=== PATIENT | female | born 1960 | race Caucasian/White ===

== ENCOUNTER 2016-12-14 19:22 | Emergency (ER) | payer OTHER ==
[~2016-12-14] VITALS: Ht 170.2 cm; Wt 62.7 kg
[~2016-12-14 19:22] MED LIST: ACET-1256 PO; ADENOSINE IV SOLN 3 MG/ML 2 ML VIAL IV STA; ADENOSINE IV SOLN 3 MG/ML 2 ML VIAL ONE; AMIT10TA6 PO; CALC-20 PO; LORA-741 PO; METO25TA56 PO; PROM25TA16 PO; TRAM-10 PO; VALA1TAB PO
[2016-12-14 19:35] VITALS: TEMP 36.8; O2SAT 95; Ht 170.2 cm; Wt 62.7 kg
[2016-12-14 19:40] LABS: BASO % 0.5 %; BASO ABS # 0.03 K/uL (0-0.2); COMPLETE YES; EOS % 3.6 %; HEMATOCRIT 38.6 % (37-47); IG% 0.3 %; LYMPH % 40.7 %; LYMPH ABS # 2.46 K/uL (1.2-3.4); MEAN CELL VOLUME 91.5 fL (80-100); MEAN CORPUSCULAR HEMOGLOBIN 29.1 pg (25-34); MEAN CORPUSCULAR HGB CONC 31.9 g/dl (32-36); MEAN PLATELET VOLUME 9.3 fL (7.4-10.4); MONO % 6.5 %; NEUT % 48.4 %; PLATELET COUNT 202 K/uL (130-400); RED BLOOD COUNT 4.22 M/uL (4.2-5.4); WHITE BLOOD COUNT 6.04 K/uL (4.8-10.8)
--- NOTE | 2016-12-14 19:42 | DIAGNOSTIC IMAGING REPORT ---
CHEST ONE VIEW PORTABLE CLINICAL HISTORY: SVT cardiac arrhythmia COMPARISON STUDY: 09/06/2013 FINDINGS: The bones soft tissues and hemidiaphragms are normal. The cardiomediastinal silhouette is normal. The lungs are clear. The pulmonary vasculature is normal. IMPRESSION: Negative chest. The above report was generated using voice recognition software. It may contain grammatical, syntax or spelling errors. Electronically signed by: Alonzo Milner M.D. 12/14/2016 7:41 PM Dictated Date/Time: 12/14/2016 7:40 PM
[2016-12-14 19:59] LABS: ALT/SGPT 22 U/L (12-78); AST/SGOT 17 U/L (15-37); BLOOD UREA NITROGEN 12 mg/dl (7-18); BUN/CREATININE RATIO 12.1 (10-20); CALCIUM 8.5 mg/dl (8.5-10.1); CARBON DIOXIDE 25 mmol/L (21-32); CHLORIDE 107 mmol/L (98-107); CREATININE 0.95 mg/dl (0.60-1.20); GLUCOSE 108 mg/dl (70-99); MAGNESIUM 2.3 mg/dl (1.8-2.4); POTASSIUM 3.4 mmol/L (3.5-5.1); SODIUM 141 mmol/L (136-145)
[2016-12-14] MEDS ORDERED: POTASSIUM CHLORIDE 10 MEQ TABCR PO STA (20:06)
[2016-12-14 20:10] LABS: ALKALINE PHOSPHATASE 69 U/L (45-117)
--- NOTE | 2016-12-14 20:14 | EMERGENCY ROOM VISIT NOTE ---
History Report prepared by Geovanni: Deb Snider Under the Supervision of: Dr. Lakisha Painter M.D. First contact with patient: 19:20 Stated Complaint: TACHYCARDIA History of Present Illness The patient is a 56 year old female who presents to the Emergency Room by EMS with complaints of an episode of tachycardia just prior to arrival. The patient states that she felt light headed and near syncope when the episode began. She is asymptomatic upon arrival. The patient states that she had an episode like previously two years ago when she was tx in the ED for SVT. She denies smoking. Pt has a history of IBS. Source of History: patient Onset: Just prior to arrival Quality: other (tachycardia) Timing: other (episode) Note: Pt states she felt light headed and near syncope. Review of Systems See HPI for pertinent positives & negatives. A total of 10 systems reviewed and were otherwise negative. Past Medical & Surgical Medical Problems: (1) Depression Surgical Problems: (1) History of dilation and curettage (2) History of tonsillectomy Family History No pertinent family history stated. Social History Smoking Status: Never Smoker Marital Status: Housing Status: lives with family Current/Historical Medications Scheduled Amitriptyline Hcl (Elavil), 20 MG PO DAILY Calcium Carbonate-Vitamin D (Calcium 600 + D), 1 TAB PO DAILY Metoprolol Tartrate (Lopressor) (Lopressor), 12.5 MG PO BID Valacyclovir Hcl (Valtrex), 1 TAB PO DAILY Scheduled PRN Acetaminophen (Tylenol), 500 MG PO Q4 PRN for Pain Lorazepam (Ativan), 0.5 MG PO TID PRN for NERVOUSNESS Tramadol (Ultram), 50 MG PO Q4H PRN for Pain Allergies Coded Allergies: Aspirin (Verified Allergy, Intermediate, HIVES, 12/14/16) Chocolate (Verified Allergy, Intermediate, HIVES, 12/14/16) Ibuprofen (Verified Allergy, Intermediate, HIVES, 12/14/16) [place] (Verified Allergy, Intermediate, HIVES, 12/14/16) Physical Exam Vital Signs Date Time Temp Pulse Resp B/P (MAP) Pulse Ox O2 Delivery O2 Flow Rate FiO2 12/14/16 23:25 76 16 106/72 98 12/14/16 22:32 96 12/14/16 21:23 93 18 114/72 99 Room Air 12/14/16 19:43 98 16 108/69 97 Room Air 12/14/16 19:35 36.8 206 18 106/65 94 Room Air 12/14/16 19:35 94 Room Air 12/14/16 19:35 95 Room Air 12/14/16 19:30 116 12/14/16 19:28 205 Physical Exam Vital signs reviewed. General: Well-appearing female, in no significant distress. HEENT: No scleral icterus, PERRLA, neck supple. Atraumatic. Cardiovascular: Tachycardic and regular, no extra sounds. Pulmonary: Clear to auscultation bilaterally, normal work of breathing. Abdomen: Soft, nontender, nondistended, positive bowel sounds. Musculoskeletal: Atraumatic, no peripheral edema. Neurologic: Patient awake alert and oriented x 3, full strength in all 4 extremities. Cranial nerves 2 through 12 grossly intact. Skin: Warm, dry, no rash Medical Decision & Procedures ER Provider Diagnostic Interpretation: CHEST ONE VIEW PORTABLE FINDINGS: The bones soft tissues and hemidiaphragms are normal. The cardiomediastinal silhouette is normal. The lungs are clear. The pulmonary vasculature is normal. IMPRESSION: Negative chest. The above report was generated using voice recognition software. It may contain grammatical, syntax or spelling errors. Electronically signed by: Alonzo Milner M.D. Laboratory Results 12/14/16 19:05 Red Blood Count 4.22, Mean Corpuscular Volume 91.5, Mean Corpuscular Hemoglobin 29.1, Mean Corpuscular Hemoglobin Concent 31.9, Mean Platelet Volume 9.3, Neutrophils (%) (Auto) 48.4, Lymphocytes (%) (Auto) 40.7, Monocytes (%) (Auto) 6.5, Eosinophils (%) (Auto) 3.6, Basophils (%) (Auto) 0.5, Neutrophils # (Auto) 2.92, Lymphocytes # (Auto) 2.46, Monocytes # (Auto) 0.39, Eosinophils # (Auto) 0.22, Basophils # (Auto) 0.03 12/14/16 19:05 Test 12/14/16 19:05 12/14/16 19:42 12/14/16 20:15 White Blood Count 6.04 K/uL (4.8-10.8) Red Blood Count 4.22 M/uL (4.2-5.4) Hemoglobin 12.3 g/dL (12.0-16.0) Hematocrit 38.6 % (37-47) Mean Corpuscular Volume 91.5 fL (80-100) Mean Corpuscular Hemoglobin 29.1 pg (25-34) Mean Corpuscular Hemoglobin Concent 31.9 g/dl (32-36) Platelet Count 202 K/uL (130-400) Mean Platelet Volume 9.3 fL (7.4-10.4) Neutrophils (%) (Auto) 48.4 % Lymphocytes (%) (Auto) 40.7 % Monocytes (%) (Auto) 6.5 % Eosinophils (%) (Auto) 3.6 % Basophils (%) (Auto) 0.5 % Neutrophils # (Auto) 2.92 K/uL (1.4-6.5) Lymphocytes # (Auto) 2.46 K/uL (1.2-3.4) Monocytes # (Auto) 0.39 K/uL (0.11-0.59) Eosinophils # (Auto) 0.22 K/uL (0-0.5) Basophils # (Auto) 0.03 K/uL (0-0.2) RDW Standard Deviation 43.4 fL (36.4-46.3) RDW Coefficient of Variation 13.0 % (11.5-14.5) Immature Granulocyte % (Auto) 0.3 % Immature Granulocyte # (Auto) 0.02 K/uL (0.00-0.02) Anion Gap 9.0 mmol/L (3-11) Est Creatinine Clear Calc Drug Dose 62.8 ml/min Estimated GFR () 76.5 Estimated GFR (Non- 66.0 BUN/Creatinine Ratio 12.1 (10-20) Calcium Level 8.5 mg/dl (8.5-10.1) Magnesium Level 2.3 mg/dl (1.8-2.4) Total Bilirubin 0.3 mg/dl (0.2-1) Direct Bilirubin < 0.1 mg/dl (0-0.2) Aspartate Amino Transf (AST/SGOT) 17 U/L (15-37) Alanine Aminotransferase (ALT/SGPT) 22 U/L (12-78) Alkaline Phosphatase 69 U/L (45-117) Total Creatine Kinase 81 U/L (26-192) Creatine Kinase MB 0.8 ng/ml (0.5-3.6) Creatine Kinase MB Ratio 1.0 (0-3.0) Total Protein 7.1 gm/dl (6.4-8.2) Albumin 4.1 gm/dl (3.4-5.0) Thyroid Stimulating Hormone (TSH) 4.660 uIu/ml (0.300-4.500) Bedside Troponin I < 0.030 ng/ml (0-0.045) Urine Color YELLOW Urine Appearance CLOUDY (CLEAR) Urine pH 6.0 (4.5-7.5) Urine Specific [place] 1.021 (1.000-1.030) Urine Protein NEG (NEG) Urine Glucose (UA) NEG (NEG) Urine Ketones 1+ (NEG) Urine Occult Blood TRACE (NEG) Urine Nitrite NEG (NEG) Urine Bilirubin NEG (NEG) Urine Urobilinogen NEG (NEG) Urine Leukocyte Esterase MODERATE (NEG) Urine WBC (Auto) 10-30 /hpf (0-5) Urine RBC (Auto) 0-4 /hpf (0-4) Urine Hyaline Casts (Auto) 1-5 /lpf (0-5) Urine Epithelial Cells (Auto) >30 /lpf (0-5) Urine Bacteria (Auto) NEG (NEG) Urine Crystals CALCIUM OXALATE (NONE Urine Pathogenic Casts /lpf (0) Urine Mucus PRESENT (NONE PRSENT) Date/Time Source Procedure Growth Status 12/14/16 20:15 Urine , Clean Catch Urine Culture - Final MORE THAN THREE TYPES OF ORGANISMS KS... Complete Laboratory results per my review. Medications Administered Medications (Trade) Dose Ordered Sig/Nandini Route Start Time Stop Time Status Last Admin Dose Admin Adenosine (Adenosine IV) 6 mg NOW STAT IV 12/14/16 19:22 12/14/16 19:23 DC 12/14/16 19:22 6 MG Potassium Chloride (Klor-Con M10) 40 meq NOW STAT PO 12/14/16 20:06 12/14/16 20:07 DC 12/14/16 20:11 40 MEQ Ondansetron HCl (Zofran Inj) 4 mg NOW STAT IV 12/14/16 20:44 12/14/16 20:46 DC 12/14/16 20:56 4 MG Acetaminophen 650 mg/Empty Bag 65 ml @ 260 mls/hr NOW STAT IV 12/14/16 20:44 12/14/16 20:58 DC 12/14/16 20:59 260 MLS/HR Prochlorperazine Edisylate (Compazine Inj) 10 mg NOW STAT IV 12/14/16 22:17 12/14/16 22:18 DC 12/14/16 22:27 10 MG Diphenhydramine HCl (Benadryl Inj) 25 mg NOW STAT IV 12/14/16 22:17 12/14/16 22:18 DC 12/14/16 22:27 25 MG Sodium Chloride 1,000 ml @ 999 mls/hr Q1H1M STAT IV 12/14/16 22:20 12/14/16 23:20 DC 12/14/16 22:27 999 MLS/HR Lorazepam (Ativan Tab) 0.5 mg NOW STAT SL 12/14/16 22:57 12/14/16 22:58 DC 12/14/16 23:25 0.5 MG ECG Indication: tachycardia Rate (beats per minute): 205 Rhythm: SVT Findings: nonspecific-ST abn ED Course 1920: Past medical records reviewed. The patient was evaluated in room A1. A complete history and physical examination was performed. 1921: Adenosine 36 mg .ROUTE, Adenosine 6 mg IV 1938 I rechecked on the patient she is feeling better and resting comfortably. 2006: Potassium Chloride 40 meq PO 2043: Acetaminophen 650 mg/Empty bag 65ml @260 mls/hr IV, Zofran Inj 4 mg IV. 2039: I reevaluated the patient she has a headache 2049: Ordered Ofirmev Iv 1000mg IV. 2216: Benadryl Inj 25 mg IV, Compazine Inj 10 mg IV 0: Sodium Chloride 1000 ml @ 999 mls/hr IV. 2257: Ativan Tab 0.5 mg SL. 2310: Upon reevaluation, the patient appeared to have improvement of her symptoms. I discussed findings with the patient. She verbalized agreement of the treatment plan. The patient was discharged home. Medical Decision Differential diagnosis: Etiologies such as premature contractions, electrolyte abnormality, cardiac dysrhythmia, thyroid dysfunction, pulmonary embolism, infection, gastrointestinal, as well as others were entertained. This pt was evaluated and appeared to be in no distress. IV access was obtained and lab work was drawn. Pt was placed on the building stonecutter. EKG confirms SVT. Pt was quickly given adenosine 6 mg IV with success in converting to sinus tachycardia. Pt was hydrated with NSS and continued to do well. Lab work reveals a mild hypoakalemia. Pt was given 40 MEq of KCl po with some nausea. Pt developed a headache, which she describes as typical of her migraines. Pt was given IV zofran, IV acetaminophen. Pt had minimal improvement and was then treated with IV compazine and benadryl. Pt ALVAREZ improved but she developed an agitation liekly secondary to the compazine. Pt was given po ativan and d/c to family. She will go home to rest and was advised to f/u with PCP this week. She will return to the ED for worsening of symptoms or any medical concerns. Medication Reconcilliation Current Medication List: was personally reviewed by me Blood Pressure Screening Patient's blood pressure: Normal blood pressure Blood pressure disposition: Did not require urgent referral Impression Primary Impression: SVT (supraventricular tachycardia) Critical Care I have personally spent greater than 30 minutes of critical care time in the direct management of this patient. This includes bedside care, interpretation of diagnostic studies, and testing, discussion with consultants, patient, and family members, and other required patient management activities. This 30 minutes is in excess of all separately billable procedures. Scribe Attestation The scribe's documentation has been prepared under my direction and personally reviewed by me in its entirety. I confirm that the note above accurately reflects all work, treatment, procedures, and medical decision making performed by me. Departure Information Dispostion Home / Self-Care Forms HOME CARE DOCUMENTATION FORM, IMPORTANT VISIT INFORMATION, WORK / SCHOOL INSTRUCTIONS Additional Instructions Diagnosis: SVT, migraine headache Please continue your medications as prescribed. Drink plenty of clear fluids. Eat a high potassium diet including bananas and potatoes. Follow-up with your physician this week for reevaluation. Return to the ER for worsening of symptoms or any medical concerns.
[2016-12-14 20:32] LABS: URINE APPEARANCE CLOUDY (CLEAR); URINE BILIRUBIN NEG (NEG); URINE COLOR YELLOW; URINE EPITHELIAL CELL AUTO >30 /lpf (0-5); URINE NITRITE NEG (NEG); URINE SPECIFIC GRAVITY 1.021 (1.000-1.030); UROBILINOGEN NEG (NEG); ZZUR CULT IF INDIC CLEAN CATCH YES
[2016-12-14 20:38] LABS: MANUAL MICROSCOPIC REQUIRED? NO; REVIEW REQ? YES
[2016-12-14] MEDS ORDERED: METO25TA56 PO (20:41)
[2016-12-14] MEDS ORDERED: VALA500T39 PO (20:41)
[2016-12-14] MEDS ORDERED: ACETAMINOPHEN IV 650 MG in EMPTY BAG 0 ML IV STA (20:44)
[2016-12-14] MEDS ORDERED: ONDANSETRON INJ 2 MG/ML 2 ML VIAL IV STA (20:44)
[2016-12-14 20:48] LABS: URINE MUCUS PRESENT (NONE PRSENT)
[2016-12-14] MEDS ORDERED: ACETAMINOPHEN 1000 MG/100 ML IV IV ONE (20:50)
[2016-12-14] MEDS ORDERED: DiphenhydrAMINE HCL 50 MG/ML VIAL IV STA (22:17)
[2016-12-14] MEDS ORDERED: PROCHLORPERAZINE 5 MG/ML 2 ML VIAL IV STA (22:17)
[2016-12-14] MEDS ORDERED: SODIUM CHLORIDE 0.9% 1000ML 1,000 ML IV STA (22:20)
[2016-12-14] MEDS ORDERED: LORAZEPAM 0.5 MG TAB SL STA (22:57)
[2016-12-14 23:25] VITALS: BP 106/72; PULSE 76; O2SAT 98
== END 2016-12-14 23:26 | disposition home or self-care (01) ==
LOC: EDBD 19:22 → C.ED 19:23 → C.EDB 23:26
DX: I47.1 Supraventricular tachycardia (principal); F32.9 Major depressive disorder, single episode, unspecified; Z90.89 Acquired absence of other organs; Z98.890 Other specified postprocedural states; Z79.899 Other long term (current) drug therapy

== ENCOUNTER 2017-04-16 08:35 | Emergency (ER) | payer OTHER ==
[~2017-04-16] VITALS: Ht 167.6 cm; Wt 56.6 kg
[~2017-04-16 08:35] MED LIST changes: -ADENOSINE IV SOLN 3 MG/ML 2 ML VIAL IV STA; -ADENOSINE IV SOLN 3 MG/ML 2 ML VIAL ONE; -PROM25TA16 PO; -VALA1TAB PO; +VALA500T39 PO
[2017-04-16 08:38] VITALS: BP_DIAS 77; TEMP 36.6; Ht 167.6 cm; Wt 56.6 kg
[2017-04-16] MEDS ORDERED: RANITIDINE HCL 50 MG/100 ML D5W IV STA (08:55)
[2017-04-16] MEDS ORDERED: DiphenhydrAMINE HCL 50 MG/ML VIAL IV STA (08:55)
[2017-04-16] MEDS ORDERED: METHYLPREDNISOLONE 125 MG VIAL IV STA (08:55)
[2017-04-16 10:23] VITALS: BP_SYST 114; PULSE 79; O2SAT 100
[2017-04-16] MEDS ORDERED: PRED20TA PO (10:39)
--- NOTE | 2017-04-16 10:40 | EMERGENCY ROOM VISIT NOTE ---
ED Visit Note First contact with patient: 08:42 CHIEF COMPLAINT: Itchy skin rash 3 days HISTORY OF PRESENT ILLNESS: Patient is a 57-year-old white female who presents to the emergency Department copy by her family for evaluation of hives. She states that she has been sick with cough for about 3 weeks. On Tuesday, 3 days ago, she had noticed a few hives on her abdomen and her arms. She went to the doctor for her cough, and was started on Augmentin and Tessalon. The following morning, the hives were markedly worse. They were all over, arms, legs, chest, abdomen and her back. She went back and was placed on prednisone, she reports 20 mg daily for 5 days. She has been taking Benadryl 50 mg every 6 hours. She stops taking the Augmentin yesterday. She only had about 3 or 4 doses, and reports that she had hives before she started the antibiotics. Today , she noticed a few hives on her lips. Denies difficulty breathing or a feeling of swelling in the throat. She cannot think of any new exposure to any potential allergens such as new medications, clothes, detergents, cosmetic products, or foods. She reports that the rash is very itchy. She reports 1 reaction similar to this previously but this was many years ago. REVIEW OF SYSTEMS: Review of systems as per HPI. All other systems reviewed were negative. 10 systems reviewed. PMH: Electronic medical records are reviewed and summarized as above/below. See Problem List. SOCIAL HISTORY: Patient lives at home with her family. Nonsmoker.. PHYSICAL EXAM: Vital Signs: Reviewed Nurse's notes. CONSTITUTIONAL: He is a pleasant, well-appearing 57-year-old white female who is awake and alert and in no acute distress. EYES: Pupils equal, round, reactive to light and accommodation. EOMs intact without nystagmus. Sclera are anicteric. ENT: Tympanic membranes intact, with normal landmarks. External canals are clear. Oral and nasopharynx are clear. Mucous membranes are moist, no lesions , tongue and gums appear normal. NECK: No bruits auscultated. Supple without lymphadenopathy. No thyromegaly. No meningeal signs. Full active range of motion without discomfort. CARDIOVASCULAR: Regular rate and rhythm, with normal S1 and S2, no murmur or gallop or rub is heard. No carotid bruits auscultated. No JVD. Peripheral pulses easily palpable. RESPIRATORY: Breath sounds equal and clear to auscultation without wheezes, rales, or rhonchi heard. Full and equal chest expansion without accessory muscle use or retractions. INTEGUMENTARY: There is a generalized blotchy, erythematous, blanchable eruption involving her chest, abdomen, back, arms and legs. She has a few lesions noted on her ears, and a couple on her upper lip. Palms and soles are spared. No petechiae, hemorrhagic lesions, or bullae were seen. EMERGENCY DEPARTMENT COURSE: The patient was seen and examined as above. Her old records were reviewed. IV lock was initiated and she was treated with Benadryl 50 mg IV, Zantac 50 mg IV and Solu-Medrol 125 mg IV. She was reassessed, and has a slight improvement in her rash. Patient will be placed on a higher prednisone taper, she was encouraged to continue the Benadryl, and to add ranitidine to her regimen. Rash appears consistent with urticaria, unclear of the etiology at this time, could be viral related to her recent URI. She did have the rash prior to starting the Augmentin, however the rash worsened after the antibiotics so that could play a role as well. She has discontinued the Augmentin. Rash is not consistent with pityriasis or a vasculitis. I do not suspect cellulitis, SJS or TEN. She was encouraged to recheck with her primary care provider later this week, and to return to the emergency department for worsening symptoms. Medication reconciliation: I attest that I have personally reviewed the patient' s current medication list. Blood pressure screening : Patient was found to have normal blood pressure on screening and does not require follow-up. Problem List Medical Problems: (1) Depression Status: Chronic (2) SVT (supraventricular tachycardia) Status: Resolved (3) Tachycardia Status: Resolved (4) Tachycardia Status: Resolved Surgical Problems: (1) History of dilation and curettage Status: Resolved (2) History of tonsillectomy Status: Resolved Current/Historical Medications Scheduled Amitriptyline Hcl (Elavil), 20 MG PO DAILY Calcium Carbonate-Vitamin D (Calcium 600 + D), 1 TAB PO DAILY Prednisone (Prednisone), 0 PO DAILY Valacyclovir Hcl (Valtrex), 1 TAB PO DAILY Scheduled PRN Acetaminophen (Tylenol), 500 MG PO Q4 PRN for Pain Lorazepam (Ativan), 0.5 MG PO TID PRN for NERVOUSNESS Tramadol (Ultram), 50 MG PO Q4H PRN for Pain Allergies Coded Allergies: Aspirin (Verified Allergy, Intermediate, HIVES, 04/16/17) Chocolate (Verified Allergy, Intermediate, HIVES, 04/16/17) Ibuprofen (Verified Allergy, Intermediate, HIVES, 04/16/17) [place] (Verified Allergy, Intermediate, HIVES, 04/16/17) Vital Signs Date Time Temp Pulse Resp B/P (MAP) Pulse Ox O2 Delivery O2 Flow Rate FiO2 04/16/17 10:23 79 20 114/ 100 Room Air 04/16/17 08:38 36.6 99 16 117/77 100 Room Air Medications Administered Medications (Trade) Dose Ordered Sig/Nandini Route Start Time Stop Time Status Last Admin Dose Admin Methylprednisolone Sodium Succinate (Solu-Medrol IV) 125 mg NOW STAT IV 04/16/17 08:55 04/16/17 08:56 DC 04/16/17 09:12 125 MG Diphenhydramine HCl (Benadryl Inj) 50 mg NOW STAT IV 04/16/17 08:55 04/16/17 08:56 DC 04/16/17 09:12 50 MG Ranitidine HCl (zANTac IV) 50 mg NOW STAT IV 04/16/17 08:55 04/16/17 08:56 DC 04/16/17 10:23 50 MG Departure Information Impression Primary Impression: Urticaria Prescriptions Prednisone (Prednisone) 20 Mg Tab 0 PO DAILY, #25 TAB 3 DAILY FOR 5 DAYS, THEN 2 DAILY FOR 5 DAYS, THEN 1 DAILY FOR 5 DAYS. Prov: Shalini Vail PA 04/16/17 Referrals Brea Rider D.O. (PCP) Patient Instructions [facility] Additional Instructions DO NOT drive, drink alcohol, operate machinery, or perform dangerous activities today. You were given medications in the ER that can affect your ability to safely function or operate a vehicle. Prednisone 20 mg : Once daily as instructed until the prescription is finished. It is best to take this earlier in the day as some patients note occasional difficulty falling asleep when taken in the late evening. Diphenhydramine(Benadryl) 25mg: use 25 to 50 mg as needed every six hours for swelling, itching, or hives. This medication is sedating and will cause drowsiness. Avoid alcohol, operating machinery or dangerous equipment, working on ladders or roofs, DRIVING, or situations where being under the influence may be dangerous. Zantac 75: Take two pills twice a day along with Benadryl as needed for swelling , itching, or hives. Most people know this for its affect on the stomach, but it also acts similar to, but less potent than Benadryl for allergic reactions. Both the Benadryl and the Zantac are available [id number]. Read all the package inserts or medication information paperwork provided. If you have any questions or concerns call your primary provider, pharmacist or the ER for assistance. Continue current medications. Return to the emergency department for worsening of your rash, swelling of your face, lips, tongue, or throat, difficulty breathing, vomiting, or as needed. Follow-up with your primary care physician in 2-3 days for a recheck of your current condition.
== END 2017-04-16 10:50 | disposition home or self-care (01) ==
LOC: C.EDB 08:36
DX: L50.9 Urticaria, unspecified (principal); F32.9 Major depressive disorder, single episode, unspecified; Z90.89 Acquired absence of other organs; Z98.890 Other specified postprocedural states; Z79.899 Other long term (current) drug therapy